=== PATIENT | male | born 1955 | race Hispanic/Latino ===

== ENCOUNTER 2017-05-23 10:48 | Day surgery (SDC) | payer MEDICAID ==
[2017-05-17 13:07] VITALS: BMI 29.2
[2017-05-23] MEDS ORDERED: Propofol 10 mg/ml Inj (20 ML) ONE ×2 (14:29→14:51)
[2017-05-23] MEDS ORDERED: Lidocaine 2% Inj (20ml) ONE (14:29)
[2017-05-23] MEDS ORDERED: Sodium Chloride 0.9% 500 ML IV SCH (15:15)
[2017-05-23 15:47] VITALS: O2SAT 97
[2017-05-23 16:16] VITALS: PULSE 65; RESP 18; TEMP 97.5
[2017-05-23 18:32] VITALS: BP 128/72
== END 2017-05-23 17:00 | disposition home or self-care (01) ==
LOC: ENDO 10:48
PROVIDERS: ATTEND Internal Medicine
DX: C18.6 Malignant neoplasm of descending colon (principal); D12.4 Benign neoplasm of descending colon; K64.8 Other hemorrhoids; I10 Essential (primary) hypertension; Z86.73 Personal history of transient ischemic attack (TIA), and cerebral infarction without residual deficits; R01.2 Other cardiac sounds; K44.9 Diaphragmatic hernia without obstruction or gangrene; K22.70 Barrett's esophagus without dysplasia; K21.9 Gastro-esophageal reflux disease without esophagitis; K59.04 Chronic idiopathic constipation; I67.9 Cerebrovascular disease, unspecified; E78.5 Hyperlipidemia, unspecified; E66.3 Overweight; Z68.29 Body mass index [BMI] 29.0-29.9, adult
CPT/HCPCS: 45385; 45390; 88305; J2704; J7040 ×2

== ENCOUNTER 2017-08-20 05:53 | Day surgery (SDC) | payer MEDICAID ==
[2017-08-13 08:48] VITALS: BMI 28.5
[2017-08-20] MEDS ORDERED: Propofol 10 mg/ml Inj (20 ML) ONE ×2 (08:01→08:43)
[2017-08-20] MEDS ORDERED: Lidocaine 1% Inj (20ml) ONE (08:01)
[2017-08-20] MEDS ORDERED: ePHEDrine 50 mg/ml Inj ONE (08:18)
[2017-08-20] MEDS ORDERED: Atropine 0.4 mg/ml Inj (1 mL) ONE (08:18)
[2017-08-20] MEDS ORDERED: Sodium Chloride 0.9% 1,000 ML IV SCH (09:30)
[2017-08-20 10:21] VITALS: PULSE 55; RESP 19; TEMP 97.6; O2SAT 98
[2017-08-20 10:49] VITALS: BP 168/93
[2017-08-20] MEDS ORDERED: TDAP Vaccine 0.5 mL Syr IM ONE (11:25)
--- NOTE | 2017-08-20 11:44 | CP.PCM.PCO ---
<Juan Carlos Bell - Last Filed: 08/20/17 11:33> Addendum Addendum: 08/20/17 11:33 Juan Carlos Bell D.O. PGY-2, D.O. On Duty (DOOD) Received page from RN that patient in Same Day Surgery had scrapped his toe. 62 year old male seen and examined at chairside in [facility]. Patient had finished colonoscopy and was getting dressed to leave when he scrapped his right 2nd toe on the rolling table in front of him. Patient had a small amount of skin slough off over the top of the second toe with minimal bleeding. When arrived bleeding had already stopped. 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 No other findings. Gen Well developed, well nourished, older than appearing age male, comfortable in no distress Foot Right foot AFO brace in place, right second toe partial thickness skin slough/abrasion less than 1/2 cm, no active bleeding, no sensation over entire foot 2/2 CVA, cap refill <2 s, no other abnormalities Patient unsure of when last tetanus shot received, likely >10 years. Right 2nd toe abrasion Dr. Martín bee Cleaned area and inspected thoroughly, only partial thickness Placed clean 1x1 gauze over toe as he has no socks on and wearing a shoe to prevent further irritation Tdap ordered and to be given by nursing staff Educated the patient in great detail to keep a close eye on the toe over the next couple of days/weeks, make sure that it is healing well, to leave gauze and keep dry for at least 24 hours, and to go to his PMD/come to the ER for ANY signs of infection, bleeding, changes in color, muscle stiffness, fevers, chills , or ANY other concerns, particularly because of his inability to feel the toe. Patient verbalized both the understanding and agreement with the aforementioned plan. <Frida Guadarrama - Last Filed: 08/20/17 14:45> Attending/Attestation - Attestation I have personally seen and examined this patient.: No I have fully participated in the care of the patient.: No I have reviewed all pertinent clinical information: Yes
== END 2017-08-20 12:40 | disposition home or self-care (01) ==
LOC: ENDO 05:53
PROVIDERS: ATTEND Internal Medicine
DX: D12.2 Benign neoplasm of ascending colon (principal); K64.8 Other hemorrhoids; Q43.8 Other specified congenital malformations of intestine; Z85.038 Personal history of other malignant neoplasm of large intestine; I10 Essential (primary) hypertension; I69.351 Hemiplegia and hemiparesis following cerebral infarction affecting right dominant side; S90.414A Abrasion, right lesser toe(s), initial encounter; X58.XXXA Exposure to other specified factors, initial encounter; Y93.89 Activity, other specified; Y92.530 Ambulatory surgery center as the place of occurrence of the external cause
CPT/HCPCS: 45380; 45385; 88305; 90471; 90715; J2704; J7040 ×2